=== PATIENT | female | born 1955 | race Asian ===

== ENCOUNTER 2016-11-16 06:57 | Day surgery (SDC) | payer OTHER ==
[2016-11-15 11:05] VITALS: Ht 162.6 cm; Wt 75.0 kg
[2016-11-16] VITALS (12 sets, daily range): BP systolic 109–147; BP diastolic 65–81; PULSE 52–72; RESP 16–19
[~2016-11-16] VITALS: Ht 162.6 cm; Wt 75.0 kg
[2016-11-16] MEDS ORDERED: LIDOCAINE 2% (SDV) 5 ML INJ ONE (08:21)
[2016-11-16] MEDS ORDERED: EPINEPHrine 1 MG INJ ONE (08:21)
[2016-11-16] MEDS ORDERED: BUPIVACAINE 0.75% (MPF) 10 ML INJ ONE (08:21)
[2016-11-16] MEDS ORDERED: LIDOCAINE 1% (MPF) 10 ML INJ ONE (08:21)
[2016-11-16] MEDS ORDERED: TIMOLOL 0.5% 5 ML OPH ONE (08:21)
--- NOTE | 2016-11-16 08:31 | RADRPT ---
PROCEDURE: XR Chest. CLINICAL INDICATION: Preop TECHNIQUE: Single frontal chest x-ray. COMPARISON: None. FINDINGS: The lungs are clear. No focal opacification is seen. The cardiomediastinal silhouette is unremarka ble. The osseous structures are unremarkable. IMPRESSION: 1. There is no acute cardiopulmonary process. RPTAT: HMJB .Chris Leigh MD, MD Date Time Electronically viewed and signed by .Chris Leigh MD, on 11/16/2016 08:31 .B/
[2016-11-16] MEDS ORDERED: ATEN50TA PO (08:38)
[2016-11-16] MEDS ORDERED: METF-480 PO (08:39)
[2016-11-16] MEDS ORDERED: LOSA50TA6 PO (08:39)
[2016-11-16] MEDS ORDERED: LOVA10TA63 PO (08:39)
[2016-11-16] MEDS ORDERED: HYD25 PO (08:40)
[2016-11-16] MEDS ORDERED: OMEG500C3 PO (08:41)
[2016-11-16] MEDS ORDERED: ASCO500C7 PO (08:41)
[2016-11-16] MEDS ORDERED: ASPI81TA3 PO (08:41)
[2016-11-16] MEDS ORDERED: LIDOCAINE 1% (MPF) 10 ML INJ INJ ONE (08:47)
[2016-11-16] MEDS ORDERED: PROPOFOL 20 ML ONE (08:58)
[2016-11-16] MEDS ORDERED: CYCLOPENTOLATE 2% 2 ML OPH OPER SCH (09:00)
[2016-11-16] MEDS ORDERED: PHENYLephrine 10% 5 ML OPH OPER SCH (09:00)
[2016-11-16] MEDS ORDERED: NEPAFENAC 0.1% 3 ML OPH OPER SCH (09:00)
[2016-11-16] MEDS ORDERED: MOXIFLOXACIN 0.5% 3 ML OPH OPER SCH (09:00)
[2016-11-16] MEDS ORDERED: ONDANSETRON 4 MG INJ IV PRN (09:30)
[2016-11-16] MEDS ORDERED: FENTAnyl 50 MCG/ML VIAL IV PRN ×2 (09:30)
--- NOTE | 2016-11-16 18:13 | OPR ---
DATE OF OPERATION: 11/16/2016 SURGEON: Jonas Enriquez MD CAN WASHER: None. PREOPERATIVE DIAGNOSIS: Senile nuclear sclerotic cataract, right eye. POSTOPERATIVE DIAGNOSIS: Senile nuclear sclerotic cataract, right eye. OPERATION: Kelman phacoemulsification with implantation of intraocular lens, right eye. DESCRIPTION OF PROCEDURE: Following standard preparation and draping of the patient, an aspirating lid speculum was placed for immobilization of the lids. A Superblade incision was made for access in to the anterior chamber. Approximately 0.5 ml of 1% unpreserved Xylocaine was instilled into the ant erior chamber, and after approximately 15 seconds, this was replaced with Viscoat. A clear corneal incision was then made using the 3.2 mm keratome, following which an anterior circul ar capsulorrhexis was made. The major portion of the lens cortex and nucleus was then dislocated fro m the capsular bag using hydrodissection. The KPE tip was introduced into the eye, and controlling m ovements of the lens with a two-handed technique, the major portion of the lens cortex and nucleus w as removed, maintaining the lens in the plane of the iris. The remaining cortical material was remov ed via the irrigating-aspirating instrument. The capsular bag and the anterior chamber were re-forme d using Viscoat. The proper power lens was then placed within the capsular bag. The viscoelastic was then removed from the eye and the eye re-formed with balanced salt solution. One 10-0 Vicryl suture was then used to ensure closure of the corneal incision. The eye was re-forme d to normal pressure using balanced salt solution. The eye and cul-de-sacs were now simply flooded w ith 5% Betadine solution. One drop of Vigamox and one drop of Betagan solution were instilled into the eye. A light pressure d ressing was applied, and the patient was returned to the recovery room in satisfactory condition. Dictated By: JONAS COLUNGA/DILSHAD Conf#: [id number] DID#: [id number]
== END 2016-11-16 11:28 | disposition home or self-care (01) ==
LOC: SDS 06:57
PROVIDERS: ATTEND Ophthalmology
DX: H25.11 Age-related nuclear cataract, right eye (principal); I10 Essential (primary) hypertension; E11.9 Type 2 diabetes mellitus without complications
CPT/HCPCS: 66984; 71010; 82962; J0171; V2632; Z7512; Z7610

== ENCOUNTER 2017-02-06 07:06 | Day surgery (SDC) | payer OTHER ==
[2017-02-06] VITALS (16 sets, daily range): BP systolic 139–156; BP diastolic 71–81; PULSE 50–56; RESP 16–24; Ht 162.6 cm; Wt 73.9 kg
[~2017-02-06] VITALS: Ht 162.6 cm; Wt 73.9 kg
[~2017-02-06 07:06] MED LIST: ASCO500C7 PO; ASPI81TA3 PO; ATEN50TA PO; HYD25 PO; LOSA50TA6 PO; LOVA10TA63 PO; METF-480 PO; OMEG500C3 PO
[2017-02-06] MEDS ORDERED: BUPIVACAINE 0.75% (MPF) 10 ML INJ ONE (07:54)
[2017-02-06] MEDS ORDERED: LIDOCAINE 1% (MPF) 10 ML INJ ONE (07:54)
[2017-02-06] MEDS ORDERED: SODIUM BICARBONATE (IV ADD) 50 ML ONE (07:55)
[2017-02-06] MEDS ORDERED: EPINEPHrine 1 MG INJ ONE (07:55)
[2017-02-06] MEDS ORDERED: TIMOLOL 0.5% 5 ML OPH ONE (07:55)
[2017-02-06] MEDS ORDERED: MOXIFLOXACIN 0.5% 3 ML OPH OPER SCH ×2 (08:09→10:00)
[2017-02-06] MEDS ORDERED: CYCLOPENTOLATE 2% 2 ML OPH OPER SCH ×2 (08:09→10:00)
[2017-02-06] MEDS ORDERED: LIDOCAINE 2% (SDV) 5 ML INJ ONE ×2 (08:10→08:20)
[2017-02-06] MEDS ORDERED: NEPAFENAC 0.1% 3 ML OPH OPER SCH ×2 (08:10→10:00)
[2017-02-06] MEDS ORDERED: PHENYLephrine 10% 5 ML OPH OPER SCH ×2 (08:10→10:00)
[2017-02-06] MEDS ORDERED: MIDAZOLAM 1 MG/ML 2 ML INJ ONE (08:20)
[2017-02-06] MEDS ORDERED: PROPOFOL 20 ML ONE (08:20)
[2017-02-06] MEDS ORDERED: ONDANSETRON 4 MG INJ ONE (08:20)
[2017-02-06] MEDS ORDERED: ONDANSETRON 4 MG INJ IV PRN (08:30)
[2017-02-06] MEDS ORDERED: OXYCODONE/ACETAMINOPHEN (5/325) TAB PO PRN (08:30)
[2017-02-06] MEDS ORDERED: PROCHLORPERAZINE 10 MG INJ IV PRN (08:30)
[2017-02-06] MEDS ORDERED: MEPERIDINE 25 MG INJ IV PRN (08:30)
[2017-02-06] MEDS ORDERED: DIPHENHYDRAMINE 50 MG INJ IV PRN (08:30)
[2017-02-06] MEDS ORDERED: METOCLOPRAMIDE 10 MG INJ IV PRN (08:30)
[2017-02-06] MEDS ORDERED: FENTAnyl 50 MCG/ML VIAL IV PRN (08:30)
[2017-02-06] MEDS ORDERED: LABETALOL HCL 20MG INJ IV PRN ×2 (08:30→11:00)
[2017-02-06] MEDS ORDERED: hydrALAzine 20 MG INJ IV PRN ×2 (08:30→11:00)
[2017-02-06] MEDS ORDERED: GLIP-95 PO (08:42)
[2017-02-06] MEDS ORDERED: GLIP5TAB13 PO (08:42)
--- NOTE | 2017-02-06 08:51 | OPPN ---
Date/Time of Note Date/Time of Note DATE: 02/06/17 TIME: 08:48 Anesthesia Eval and Record Evaluation Age 61 Sex female NPO: 8 hrs Preoperative diagnosis L eye cataract Planned procedure L eye phacoemulsification, IOL placement Past Medical History Cardio: HTN Endo: DM Renal: CKD Surgery & Anesthesia Issues No known issue Meds Anticoagulation: No Beta Mario within 24 hr: Yes Reported Medications Glipizide* (Glipizide*) 10 Mg Tablet, 10 MG PO AC BREAKFAST, TAB 02/06/17 Glipizide* (Glipizide*) 5 Mg Tablet, 5 MG PO DAILY, TAB 02/06/17 Neeses-3 Fatty Acids (Fish Oil) 500 Mg Capsule, 500 MG PO DAILY, CAP 11/16/16 Ascorbic Acid* (Vitamin C*) 500 Mg Capsule.sa, 500 MG PO DAILY, CAP 11/16/16 Aspirin* (Aspirin* Chew) 81 Mg Tab.chew, 81 MG PO DAILY, TAB.CHEW 11/16/16 Hydrochlorothiazide* (Hydrochlorothiazide*) 25 Mg Tab, 25 MG PO DAILY, #30 TAB 11/16/16 Lovastatin* (Lovastatin*) 10 Mg Tablet, 10 MG PO HS, TAB 11/16/16 Losartan Potassium* (Losartan Potassium*) 50 Mg Tablet, 50 MG PO DAILY, TAB 11/16/16 Metformin* (Glucophage*) 850 Mg Tablet, 850 MG PO TID, #30 TAB 11/16/16 Atenolol* (Atenolol*) 50 Mg Tablet, 50 MG PO BID, #60 TAB 11/16/16 Current Medications Moxifloxacin HCl (Vigamox) 1 drop ONCE OPER Last administered on 02/06/17 08:24 ; Admin Dose 1 DROP; Start 02/06/17 at 08:09; Stop 02/06/17 at 12:00 Cyclopentolate HCl (Cyclogyl 2% Oph) 1 drop ONCE OPER Last administered on 08:23; Admin Dose 1 DROP; Start 02/06/17 at 08:09; Stop 02/06/17 at 12:00 Phenylephrine HCl (Ak-Dilate 10%) 1 drop ONCE OPER Last administered on 08:20; Admin Dose 1 DROP; Start 02/06/17 at 08:10; Stop 02/06/17 at 12:00 Nepafenac ([place] Oph) 1 drop ONCE OPER Last administered on 02/06/17t 08:23; Admin Dose 1 DROP; Start 02/06/17 at 08:10; Stop 02/06/17 at 12:00 Allergies Coded Allergies: No Known Allergy (Unverified , 02/06/17) Labs/Studies Reviewed by anesthesiologist ZEYAD [id number], outside labs reviewed, WNL Test: N/A Studies: ECG, CXR Pre-procedure Exam Last vitals Vital Signs Date Time Temp Pulse Resp B/P Pulse Ox O2 Delivery O2 Flow Rate FiO2 02/06/17 07:50 97.7 56 16 154/77 99 Airway: Adequate mouth opening, Adequate thyromental dist Mallampati Score: Mallampati III Teeth: Normal Lung: Normal Heart: Normal ASA Physical Status ASA physical status: 3 Planned Anesthetic General/MAC: MAC Planned Pain Management Parenteral pain med, Local by surgeon Pre-operative Attestations Prior to commencing anesthesia and surgery, the patient was re-evaluated, there was verification of: *The patient's identity *The results of appropriate recent lab work and preoperative vital signs *The above evaluation not changing prior to induction *Anesthetic plan, risk benefits, alternative and complications discussed with patient/family; questions answered; patient/family understands, accepts and wishes to proceed. SAKINA JAY MD Feb 06, 2017 08:51
[2017-02-06] MEDS ORDERED: METOCLOPRAMIDE 10 MG INJ ONE (08:52)
[2017-02-06] MEDS ORDERED: INSULIN ASPART [NOVOLOG] 3 ML PEN SC ONE (09:00)
[2017-02-06] MEDS ORDERED: EPHEDrine SULFATE 50 MG/5 ML SYG ONE (09:25)
[2017-02-06] MEDS ORDERED: CARBACHOL 0.01% 1.5 ML OPH INJ IO ONE ×2 (09:44→09:47)
[2017-02-06] MEDS ORDERED: CARBACHOL 0.01% 1.5 ML OPH INJ ONE (09:46)
[2017-02-06] MEDS ORDERED: TIMOLOL 0.5% 5 ML OPH LEFT EYE ONE (10:02)
--- NOTE | 2017-02-06 10:22 | OPPN ---
Date/Time of Note Date/Time of Note DATE: 02/06/17 TIME: 10:22 Post-Anesthesia Notes Post-Anesthesia Note Last documented vital signs 97.7 F 153/74 50 20 100 Activity: WNL Respiratory function: WNL Cardiovascular function: WNL Mental status: Baseline Pain reasonably controlled: Yes Hydration appropriate: Yes Nausea/Vomiting absent: Yes SAKINA JAY MD Feb 06, 2017 10:22
--- NOTE | 2017-02-06 10:52 | HPN ---
Date/Time of Note Date/Time of Note DATE: 02/06/17 TIME: 10:51 Interval H&P Admission Note Pt. seen H&P reviewed: No system changes JONAS ENGLISH MD Feb 06, 2017 10:52
--- NOTE | 2017-02-06 12:28 | OPR ---
DATE OF OPERATION: 02/06/2017 PREOPERATIVE DIAGNOSIS: Senile nuclear sclerotic cataract, left eye. POSTOPERATIVE DIAGNOSIS: Senile nuclear sclerotic cataract, left eye. OPERATION PERFORMED: Planned phacoemulsification with implantation of intraocular lens. DESCRIPTION OF PROCEDURE: Following standard preparation and draping of the patient, a speculum was placed for immobilization of the lids. An accessed port was made into the anterior chamber at the limbal region at the 4:30 position, following which a small amount of nonpreserved anesthetic follow ed by Viscoat was placed to fill the anterior chamber. A 3 mm anterior limbal corneal incision was now made in the superior temporal quadrant, following which an approximately 5.5 to 6 mm anterior ca psulorrhexis was performed. The major portion of the lens cortex and nucleus were from th e capsular bag, first with a hydrodissection following hydrodelineation. The phacoemulsification ti p was placed in the eye and controlling tumbling of the lens with a 2-handed technique, the major po rtion of the lens cortex and nucleus was now removed, maintaining the lens in the plane of the iris. As the last portion of the lens appeared to be entering the phacoemulsification tip, it was seen t hat a fairly large cortical piece had slipped into the posterior chamber. How the posterior capsule tore was never seen to me to be secondary to my touching or involving the posterior capitis in the surgical procedure. It was then decided to do an anterior vitreous removal. Irrigation was placed through the initial l imbal incision following which an incision was made into the posterior chamber via an incision 3 mm behind the limbus at the approximately 2 o'clock position. A fairly extensive anterior vitrectomy w as performed and was terminated when gentle pressure on the wound did not appear to show any vitreou s attached to the wound. At this point, I decided that there was sufficient anterior cortex remaini ng to support a posterior chamber lens. As such, a posterior chamber lens was placed in the ciliary sulcus. The lens appeared to be stable and central. The incision was closed with interrupted 10-0 Vicryl suture as was the access into the posterior limbal access incision into the posterior chambe r. The eye was flooded with 5% Betadine solution. One drop of timolol was placed in the eye and 1 drop of Vigamox was placed in the eye. A light pressure dressing was applied, and the patient retur diaz to the recovery room in satisfactory condition. When seen tomorrow, a consultation with a retin al specialist will be made to remove the lens material in the vitreous cavity. Dictated By: JONAS COLUNGA/DILSHAD Conf#: [id number] DID#: [id number]
== END 2017-02-06 12:30 | disposition home or self-care (01) ==
LOC: SDS 07:06
PROVIDERS: ATTEND Ophthalmology
DX: H25.12 Age-related nuclear cataract, left eye (principal); E11.9 Type 2 diabetes mellitus without complications; I10 Essential (primary) hypertension
CPT/HCPCS: 66984; 82962; J0171; J1815; J2250; J2405; J2765; V2630; V2632; Z7512; Z7610